=== PATIENT | female | born 1985 | race Caucasian/White ===

== ENCOUNTER 2017-08-09 06:06 | Day surgery (SDC) | payer OTHER ==
[2017-08-09] MEDS ORDERED: SUBLIMAZE 100 MCG/2 ML IV ONE (06:07)
[2017-08-09] MEDS ORDERED: DIPRIVAN 200 MG/20 ML IV ONE ×2 (06:07→07:46)
[2017-08-09] MEDS ORDERED: Versed 2 MG/2 ML Injection IV ONE (06:07)
[2017-08-09] MEDS ORDERED: Lactated Ringers 1,000 ML IV ONE ×3 (06:23→07:10)
[2017-08-09] MEDS ORDERED: Lactated Ringers 1,000 ML IV SCH (06:30)
[2017-08-09 08:42] VITALS: O2SAT 100
[2017-08-09 08:44] VITALS: PULSE 66
--- NOTE | 2017-08-09 08:50 | OP ---
SURGERY DATE/TIME: 08/08/2017 0733 PREOPERATIVE DIAGNOSIS: Rectal bleeding. POSTOPERATIVE DIAGNOSIS: Normal colon. PROCEDURE: Colonoscopy with biopsy. SURGEON: Dr. Randle. ANESTHESIA: MAC. Medications given by anesthesia department. HISTORY: The patient is a 31 year-old white female who presents now with complaints of abdominal pain and rectal bleeding. The patient is felt the need to have endoscopic evaluation. She was appraised of the risks of the procedure including the risk of perforation, phlebitis, untoward reaction to medication, bleeding and missed lesions. The patient verbalized her understanding and desired to have the procedure performed. DESCRIPTION OF PROCEDURE: The patient was given the medications by the anesthesia department. She had continuous pulse oximetry, ECG monitoring, intermittent blood pressure monitoring and tidal CO2 monitoring during the examination. She was placed in the left lateral decubitus position. A digital rectal examination was performed and revealed normal anal sphincter tone and no masses, no hemorrhoids. The flexible Olympus pediatric colonoscope was used to intubate the rectum. A view of the colon was developed sequentially to the cecum including a short distance into the terminal ileum. Upon insertion and withdrawal, including a retroflex view in the rectum, no mucosal lesions were encountered. Biopsies were obtained from segments throughout the colon to rule out microscopic colitis. The scope was removed from the patient who tolerated the procedure well and was sent back to OP recovery in good condition. The prep was noted to be fair to good.
[2017-08-09 09:04] VITALS: BP 97/56
== END 2017-08-09 09:00 | disposition home or self-care (01) ==
LOC: SDC 06:06
PROVIDERS: ATTEND Family Medicine
PROC: 0DBK8ZX Excision of Ascending Colon, Via Natural or Artificial Opening Endoscopic, Diagnostic (ICD-10-PCS; principal; 2017-08-09)
PROC: 0DBL8ZX Excision of Transverse Colon, Via Natural or Artificial Opening Endoscopic, Diagnostic (ICD-10-PCS; 2017-08-09)
PROC: 0DBN8ZX Excision of Sigmoid Colon, Via Natural or Artificial Opening Endoscopic, Diagnostic (ICD-10-PCS; 2017-08-09)
DX: K62.5 Hemorrhage of anus and rectum (principal)
CPT/HCPCS: 84703; 88305; J2250; J2704; J3010

== ENCOUNTER 2019-09-22 18:35 | Observation (INO) | payer BC ==
[2019-09-22] MEDS ORDERED: Phenergan 25 MG INJ IV PRN (19:17)
[2019-09-22 19:39] LABS: Appearance CLEAR (CLEAR); Bilirubin NEGATIVE (NEGATIVE); Blood LARGE Ery/ul (0-5); Epithelial Cells RARE /HPF (FEW); Glucose NEGATIVE (NEGATIVE); Ketones NEGATIVE (NEGATIVE); Leukocyte Esterase TRACE (NEGATIVE); Mucus SLIGHT /HPF (NEGATIVE); Nitrite NEGATIVE (NEGATIVE); Protein,Urine Dip NEGATIVE (Negative); RBC 0-2 /HPF (0-2); Specific Gravity >1.060 (1.005-1.025); Urobilinogen NEGATIVE mg/dL (0-1)
[2019-09-22 19:41] LABS: Oval Fat Body,Urine NO
[2019-09-22 20:06] LABS: Hematocrit 44.1 % (35-47); Hemoglobin 14.3 gm/dl (12.0-16.0); Mean Cell Volume 95.9 fl (78-100); Mean Corpuscular Hemoglobin 31.1 pg (26-32); Mean Corpuscular Hgb Concent. 32.4 g/dl (32-36); Mean Platelet Volume 8.8 fl (7.5-11.0); Platelet Count 270 K/mm3 (150-450); Red Cell Distribution Width 13.1 % (11.5-14.0); White Blood Count 7.6 K/mm3 (4.0-10.5)
[2019-09-22 20:17] LABS: ALBUMIN 4.3 g/dL (3.5-5.0); ALKALINE PHOSPHATASE 70 U/L (38-126); ANION GAP 9.7 MEQ/L (5-15); BLOOD UREA NITROGEN 12 mg/dL (7-17); CHLORIDE 108 mmol/L (98-107); Calcium 8.9 mg/dL (8.4-10.2); Carbon Dioxide 27 mmol/L (22-30); Creatinine 1 0.72 mg/dL (0.52-1.04); Glucose 94 mg/dL (74-106); Potassium 3.7 mmol/L (3.5-5.1); SGOT/AST 23 U/L (14-36); SGPT/ALT 25 U/L (0-35); SODIUM 141 mmol/L (137-145)
[2019-09-22] MEDS: Sodium Chloride 0.9% 1000 ML 1,000 ML IV SCH (20:51)
[2019-09-22] MEDS ORDERED: Wellbutrin SR 150 MG ONE (21:19)
[2019-09-22] MEDS: Reglan 10 MG/2 ML IV SCH (22:11)
[2019-09-22] MEDS: Protonix 40MG Tablet PO SCH (22:11)
[2019-09-22] MEDS: ZOLOFT 50 MG TABLET PO SCH (22:11)
[2019-09-22] MEDS: Wellbutrin XL 150 MG PO SCH (22:12)
[2019-09-23] MEDS: Sodium Chloride 0.9% 1000 ML 1,000 ML IV SCH ×3 (03:17→15:59)
[2019-09-23] MEDS: Reglan 10 MG/2 ML IV SCH ×3 (04:03→16:00)
[2019-09-23] MEDS ORDERED: PATIENT OWN MEDICATION VAG SCH (07:15)
--- NOTE | 2019-09-23 09:05 | PCM.HP.ADD ---
Addendum to History & Physical - History & Physical Addendum Addendum to History & Physical: This certifies that the History & Physical in the electronic chart reflects the current health status of the patient. If there are changes in the H&P these changes/exceptions are listed as follows.
--- NOTE | 2019-09-23 09:11 | PCM.HP ---
History of Present Illness - Chief Complaint Chief Complaint: ileus vs enteritis History of Present Illness: is a 33 year old female pt who was directly admitted by Dr. Monge for ileus vs enteritis. Pt is feeling better this morning, her pain is decreased but still present. No vomiting or diarrhea. Has been tolerating ice chips. - Review of Systems Constitutional: No Fever Abdominal/Gastrointestinal: Abdominal Pain Medications & Allergies Home Medications: Home Medication List Levonorgestrel [Mirena] 1 each IY UD 08/09/17 [History Confirmed 09/22/19] Bupropion HCl Xl 150 mg [Wellbutrin XL 150 MG] 150 mg PO DAILY 09/22/19 [ History Confirmed 09/22/19] Hyoscyamine Sulfate 0.125 mg [Anaspaz 0.125 mg] 0.125 mg PO Q3H PRN [History Confirmed 09/22/19] Methylprednisolone 4 mg [Medrol 4 mg] 4 mg PO DAILY 09/22/19 [History Confirmed 09/22/19] Promethazine HCl 25 mg [Phenergan 25 mg] 25 mg PO Q6HPRN PRN 09/22/19 [ History Confirmed 09/22/19] Sertraline HCl [Zoloft] 100 mg PO DAILY 09/22/19 [History Confirmed 09/22/19] Allergies/Adverse Reactions: Allergies Allergy/AdvReac Type Severity Reaction Status Date / Time prochlorperazine Allergy Verified 08/08/17 16:04 [From Compazine] - Past Medical History Past Medical History: Yes Neurological History: No Pertinent History ENT History: No Pertinent History Cardiac History: No Pertinent History Respiratory History: No Pertinent History, Other Endocrine Medical History: No Pertinent History Musculoskelatal History: No Pertinent History GI Medical History: GERD History: No Pertinent History Pyscho-Social History: Anxiety, Depression Reproductive Disorders: No Pertinent History Comment: Hx of sarcodoisis. Current everyday smoker. - Female History Hx Last Menstrual Period: no period due to mirena Are you now?: No (unknown) - Past Surgical History Past Surgical History: Yes Neuro Surgical History: No Pertinent History Cardiac History: No Pertinent History Respiratory Surgery: No Pertinent History GI Surgical History: Appendectomy, Cholecystectomy, Other Genitourinary Surgical Hx: No Pertinent History Musculskeletal Surgical Hx: No Pertinent History Female Surgical History: No Pertinent History Other Surgical History: hx of colonoscopies 2013 and 2017, lymph nodes removed from groin 2013 - Social History Smoking Status: Current every day smoker How long have you smoked: 20 years Exposure to second hand smoke: Yes Alcohol: Occasionally Drug Use: none - Physical Exam Vital Signs: Vital Signs - 24 hr Temp Pulse Resp BP Pulse Ox 09/23/19 08:00 98.5 F 68 16 92/52 96 09/23/19 03:50 98.1 F 66 16 94/57 98 09/22/19 23:29 97.5 F 81 16 101/55 98 09/22/19 19:55 98.8 F 86 17 115/65 99 General Appearance: mild distress, alert Neurologic Exam: oriented x 3, cooperative Eye Exam: eyes nml inspection Ears, Nose, Throat Exam: moist mucous membranes Neck Exam: normal inspection Respiratory Exam: normal breath sounds, lungs clear, No crackles/rales, No rhonchi, No wheezing Cardiovascular Exam: regular rate/rhythm, normal heart sounds, No murmur Gastrointestinal/Abdomen Exam: soft, normal bowel sounds, tenderness (epigastrum , periumbilical), No distention, No mass, No guarding, No rebound Back Exam: normal inspection, No rash Extremity Exam: normal inspection, No pedal edema, No swelling Skin Exam: normal color, warm, dry, No rash Results - Labs Lab/Micro Results: Lab Results-Last 24 Hours 09/22/19 09/22/19 09/22/19 Range/Units 19:20 19:50 19:50 WBC 7.6 (4.0-10.5) K/mm3 RBC 4.60 (4.1-5.4) M/mm3 Hgb 14.3 (12.0-16.0) gm/dl Hct 44.1 (35-47) % MCV 95.9 (78-100) fl MCH 31.1 (26-32) pg MCHC 32.4 (32-36) g/dl RDW 13.1 (11.5-14.0) % Plt Count 270 (150-450) K/mm3 MPV 8.8 (7.5-11.0) fl Sodium 141 (137-145) mmol/L Potassium 3.7 (3.5-5.1) mmol/L Chloride 108 H (98-107) mmol/L Carbon Dioxide 27 (22-30) mmol/L Anion Gap 9.7 (5-15) MEQ/L BUN 12 (7-17) mg/dL Creatinine 0.72 (0.52-1.04) mg/dL Estimated GFR > 60.0 ML/MIN Glucose 94 (74-106) mg/dL Calcium 8.9 (8.4-10.2) mg/dL Total Bilirubin 0.50 (0.2-1.3) mg/dL AST 23 (14-36) U/L ALT 25 (0-35) U/L Alkaline Phosphatase 70 (38-126) U/L Serum Total Protein 7.0 (6.3-8.2) g/dL Albumin 4.3 (3.5-5.0) g/dL Urine Color YELLOW (YELLOW) Urine Appearance CLEAR (CLEAR) Urine pH 5.0 (5-6) Ur Specific [place] >1.060 (1.005-1.025) Urine Protein NEGATIVE (Negative) Urine Ketones NEGATIVE (NEGATIVE) Urine Blood LARGE (0-5) Vicente/ul Urine Nitrite NEGATIVE (NEGATIVE) Urine Bilirubin NEGATIVE (NEGATIVE) Urine Urobilinogen NEGATIVE (0-1) mg/dL Ur Leukocyte Esterase TRACE (NEGATIVE) Urine WBC (Auto) NONE (0-5) /HPF Urine RBC (Auto) 0-2 (0-2) /HPF U Epithel Cells (Auto) RARE (FEW) /HPF Urine Bacteria (Auto) NONE (NEGATIVE) /HPF Urine Mucus (Auto) SLIGHT (NEGATIVE) /HPF Ur Oval Fat Bodies Auto NO Urine Culture Reflexed NO (NO) Urine Glucose NEGATIVE (NEGATIVE) mg/dL Assessment/Plan (1) Ileus Current Visit: Yes Status: Acute Assessment & Plan: On IV reglan and po pantoprazole; will try CLD Code(s): K56.7 - ILEUS, UNSPECIFIED
[2019-09-23] MEDS: ZOLOFT 50 MG TABLET PO SCH (09:34)
[2019-09-23] MEDS: Protonix 40MG Tablet PO SCH (09:34)
[2019-09-23] MEDS: Wellbutrin XL 150 MG PO SCH (09:35)
[2019-09-23] MEDS ORDERED: MEDROL 4 MG PO SCH (10:00)
[2019-09-23] MEDS ORDERED: Wellbutrin XL 150 MG PO SCH (10:00)
[2019-09-23 17:15] VITALS: BP 107/64; PULSE 61; O2SAT 99
== END 2019-09-23 19:00 | disposition home or self-care (01) ==
LOC: MED SURG 19:03
PROVIDERS: ADMIT Family Medicine; ATTEND Family Medicine
DX: K56.7 Ileus, unspecified (principal); R10.9 Unspecified abdominal pain; R11.2 Nausea with vomiting, unspecified; R15.9 Full incontinence of feces; R19.7 Diarrhea, unspecified; Z79.899 Other long term (current) drug therapy
CPT/HCPCS: 36415; 80053; 81001; 82270; 85027; 87045; 87046; 87335; G0378; A9270-GY

== ENCOUNTER 2019-10-18 16:24 | Observation (INO) | payer BC ==
[2019-10-18] MEDS ORDERED: Sodium Chloride 0.9% 1000 ML 1,000 ML IV STA (16:57)
[2019-10-18] MEDS ORDERED: Zofran 4 MG/2 ML VIAL IV ONE ×2 (16:57→20:04)
[2019-10-18] MEDS ORDERED: PROTONIX 40 MG IV IV ONE ×2 (16:57→17:03)
[2019-10-18] MEDS ORDERED: Pepcid 20 MG VIAL IV ONE ×2 (16:57→17:03)
--- NOTE | 2019-10-18 16:57 | ERPHSYRPT ---
- History of Present Illness Time Seen by Provider: 10/18/19 16:52 Historian: patient Exam Limitations: no limitations Physician History: pt is 33 year old female with hx GB surgery complicated by bile leaks and requiring stents and ERCPs a number of times then developing chronic pancreatitis and GI motility concerns - neg colonoscopy and EGD recently - last CT several months ago and no abd is acutely and diffusly tender to palpation with distension. is on bently hycosamine and reglan which had been working but not this past several days and now not able to eat. Timing/Duration: week(s) Activities at Onset: none Quality: cramping, fullness, pressure, stabbing, throbbing Abdominal Pain Onset Location: generalized abdomen Pain Radiation: no radiation Severity of Pain-Max: moderate Severity of Pain-Current: moderate Modifying Factors: Improves With: vomiting Associated Symptoms: diarrhea, fever/chills, loss of appetite, nausea, vomiting Previous symptoms: same symptoms as today, recently seen, recently treated, other (increasing) Allergies/Adverse Reactions: prochlorperazine [From Compazine] Allergy (Verified 10/18/19 16:58) tramadol Adverse Reaction (Verified 10/18/19 16:59) Swelling of Feet swelling of legs and feet Home Medications: Levonorgestrel [Mirena] 1 each IY UD 08/09/17 [History] Bupropion HCl Xl 150 mg [Wellbutrin XL 150 MG] 150 mg PO DAILY 09/22/19 [ History] Hyoscyamine Sulfate 0.125 mg [Anaspaz 0.125 mg] 0.125 mg PO Q4HPRN PRN [History] Promethazine HCl 25 mg [Phenergan 25 mg] 25 mg PO Q4HPRN PRN 09/22/19 [ History] Sertraline HCl [Zoloft] 100 mg PO DAILY 09/22/19 [History] Dicyclomine HCl 20 mg [Bentyl 20 mg] 20 mg PO QID 10/18/19 [History] Metoclopramide HCl 10 mg PO QID 10/18/19 [History] Omeprazole 40 mg PO DAILY 10/18/19 [History] - Review of Systems Constitutional: No Fever, No Chills Eyes: No Symptoms Ears, Nose, & Throat: No Symptoms Respiratory: No Cough, No Dyspnea Cardiac: No Chest Pain, No Edema, No Syncope Abdominal/Gastrointestinal: Abdominal Pain, Nausea, Vomiting, Diarrhea, Appetite Changes Genitourinary Symptoms: No Dysuria Musculoskeletal: No Back Pain, No Neck Pain Skin: No Rash Neurological: No Dizziness, No Focal Weakness, No Sensory Changes Psychological: No Symptoms Endocrine: No Symptoms All Other Systems: Reviewed and Negative - Past Medical History Pertinent Past Medical History: Yes Neurological History: No Pertinent History ENT History: No Pertinent History Cardiac History: No Pertinent History Respiratory History: No Pertinent History, Other Endocrine Medical History: No Pertinent History Musculoskeletal History: No Pertinent History GI Medical History: GERD History: No Pertinent History Psycho-Social History: Anxiety, Depression Female Reproductive Disorders: No Pertinent History Other Medical History: Hx of sarcodoisis. Current everyday smoker. - Past Surgical History Past Surgical History: Yes Neuro Surgical History: No Pertinent History Cardiac: No Pertinent History Respiratory: No Pertinent History Gastrointestinal: Appendectomy, Cholecystectomy, Other Genitourinary: No Pertinent History Musculoskeletal: No Pertinent History Female Surgical History: No Pertinent History Other Surgical History: hx of colonoscopies 2013 and 2016, lymph nodes removed from groin 2013 - Social History Smoking Status: Current every day smoker How long have you smoked: 20 years Exposure to second hand smoke: Yes Drug Use: none - Nursing Vital Signs Nursing Vital Signs: Initial Vital Signs Temperature 98.4 F 10/18/19 16:31 Pulse Rate 74 10/18/19 16:31 Respiratory Rate 20 10/18/19 16:31 Blood Pressure 119/78 10/18/19 16:31 O2 Sat by Pulse Oximetry 98 10/18/19 16:31 Pain Scale Pain Intensity 5 - Physical Exam General Appearance: no apparent distress, alert Eye Exam: PERRL/EOMI, eyes nml inspection Ears, Nose, Throat Exam: normal ENT inspection, pharynx normal, moist mucous membranes Neck Exam: normal inspection, non-tender, supple, full range of motion Respiratory Exam: normal breath sounds, lungs clear, No respiratory distress Cardiovascular Exam: regular rate/rhythm, normal heart sounds Gastrointestinal/Abdomen Exam: soft, tenderness, guarding, No mass Pelvic Exam: deferred Rectal Exam: deferred Back Exam: normal inspection, normal range of motion, No CVA tenderness, No vertebral tenderness Extremity Exam: normal inspection, normal range of motion, pelvis stable Neurologic Exam: alert, oriented x 3, cooperative, normal mood/affect, nml cerebellar function, sensation nml, No motor deficits Skin Exam: normal color, warm, dry - Course Nursing assessment & vital signs reviewed: Yes - CT Exams Abdomen/Pelvis CT Interpretation: Tele-radiologist Report, No appendicitis, Other (small fluid in pelvis prob physiologic) Ordered Tests: Active Orders 24 hr Category Date Time Status IV Insertion STAT Care 10/18/19 16:57 Active NPO (ED) STAT Care 10/18/19 16:57 Active ABDOMEN AND PELVIS W/0 CONTRAS [CT] Stat Exams 10/18/19 16:59 Completed AMYLASE Stat Lab 10/18/19 17:45 Completed CBC W DIFF Stat Lab 10/18/19 17:45 Completed CMP Stat Lab 10/18/19 17:45 Completed HCG QUALITATIVE,SERUM Stat Lab 10/18/19 17:45 Completed LIPASE Stat Lab 10/18/19 17:45 Completed Lactic Acid Stat Lab 10/18/19 17:00 Completed UA W/RFX UR CULTURE Stat Lab 10/18/19 17:45 Completed Medication Summary Discontinued Medications Generic Name Dose Route Start Last Admin Trade Name Freq PRN Reason Stop Dose Admin Famotidine 20 mg 10/18/19 16:57 10/18/19 17:07 Pepcid 20 Mg Vial IV 10/18/19 16:58 20 mg STAT ONE Administration Famotidine Confirm 10/18/19 17:03 Pepcid 20 Mg Vial Administered 10/18/19 17:04 Dose 20 mg IV .STK-MED ONE Hydromorphone HCl 0.5 mg 10/18/19 18:00 10/18/19 18:24 Hydromorphone 1 Mg/Ml Ampule IV 10/18/19 18:01 0.5 mg STAT ONE Administration Hydromorphone HCl Confirm 10/18/19 18:19 Hydromorphone 1 Mg/Ml Ampule Administered 10/18/19 18:20 Dose 1 mg .ROUTE .STK-MED ONE Hydromorphone HCl 0.5 mg 10/18/19 20:04 10/18/19 20:14 Hydromorphone 1 Mg/Ml Ampule IV 10/18/19 20:05 0.5 mg STAT ONE Administration Hydromorphone HCl Confirm 10/18/19 20:12 Hydromorphone 1 Mg/Ml Ampule Administered 10/18/19 20:13 Dose 1 mg .ROUTE .STK-MED ONE Sodium Chloride 1,000 mls @ 999 mls/hr 10/18/19 16:57 10/18/19 18:24 Sodium Chloride 0.9% 1000 Ml IV 10/18/19 17:57 Infused .Q1H1M STA Infusion Sodium Chloride Confirm 10/18/19 17:03 Sodium Chloride 0.9% 1000 Ml Administered 10/18/19 17:04 Dose 1,000 mls @ ud .ROUTE .STK-MED ONE Ondansetron HCl 4 mg 10/18/19 16:57 10/18/19 17:07 Zofran 4 Mg/2 Ml Vial IV 10/18/19 16:58 4 mg STAT ONE Administration Ondansetron HCl Confirm 10/18/19 17:03 Zofran 4 Mg/2 Ml Vial Administered 10/18/19 17:04 Dose 4 mg .ROUTE .STK-MED ONE Ondansetron HCl 4 mg 10/18/19 20:04 10/18/19 20:14 Zofran 4 Mg/2 Ml Vial IV 10/18/19 20:05 4 mg STAT ONE Administration Ondansetron HCl Confirm 10/18/19 20:12 Zofran 4 Mg/2 Ml Vial Administered 10/18/19 20:13 Dose 4 mg .ROUTE .STK-MED ONE Pantoprazole Sodium 40 mg 10/18/19 16:57 10/18/19 17:07 Protonix 40 Mg Iv IV 10/18/19 16:58 40 mg STAT ONE Administration Pantoprazole Sodium Confirm 10/18/19 17:03 Protonix 40 Mg Iv Administered 10/18/19 17:04 Dose 40 mg IV .STK-MED ONE Lab/Rad Data: Laboratory Result Diagrams 10/18/19 17:45 10/18/19 17:45 Laboratory Results 10/18/19 10/18/19 10/18/19 Range/Units 17:45 17:45 17:45 WBC (4.0-10.5) K/mm3 RBC (4.1-5.4) M/mm3 Hgb (12.0-16.0) gm/dl Hct (35-47) % MCV (78-100) fl MCH (26-32) pg MCHC (32-36) g/dl RDW (11.5-14.0) % Plt Count (150-450) K/mm3 MPV (7.5-11.0) fl Gran % (36.0-66.0) % Eos # (Auto) (0-0.5) Absolute Lymphs (auto) (1.0-4.6) Absolute Monos (auto) (0.0-1.3) Lymphocytes % (24.0-44.0) % Monocytes % (0.0-12.0) % Eosinophils % (0.00-5.0) % Basophils % (0.0-0.4) % Absolute Granulocytes (1.4-6.9) Basophils # (0-0.4) Sodium 140 (137-145) mmol/L Potassium 3.9 (3.5-5.1) mmol/L Chloride 105 (98-107) mmol/L Carbon Dioxide 24 (22-30) mmol/L Anion Gap 15.3 H (5-15) MEQ/L BUN 11 (7-17) mg/dL Creatinine 0.74 (0.52-1.04) mg/dL Estimated GFR > 60.0 ML/MIN Glucose 88 (74-106) mg/dL Lactic Acid (0.4-2.0) Calcium 9.4 (8.4-10.2) mg/dL Total Bilirubin 0.50 (0.2-1.3) mg/dL AST 42 H (14-36) U/L ALT 73 H (0-35) U/L Alkaline Phosphatase 117 (38-126) U/L Serum Total Protein 7.9 (6.3-8.2) g/dL Albumin 4.8 (3.5-5.0) g/dL Amylase 72 (30-110) U/L Lipase 112 (23-300) U/L Serum , Qual NEGATIVE (Negative) Urine Color YELLOW (YELLOW) Urine Appearance SLIGHTLY CLOUDY (CLEAR) Urine pH 6.0 (5-6) Ur Specific [place] 1.014 (1.005-1.025) Urine Protein NEGATIVE (Negative) Urine Ketones NEGATIVE (NEGATIVE) Urine Blood SMALL (0-5) Vicente/ul Urine Nitrite NEGATIVE (NEGATIVE) Urine Bilirubin NEGATIVE (NEGATIVE) Urine Urobilinogen NEGATIVE (0-1) mg/dL Ur Leukocyte Esterase NEGATIVE (NEGATIVE) Urine WBC (Auto) NONE (0-5) /HPF Urine RBC (Auto) 0-2 (0-2) /HPF U Epithel Cells (Auto) RARE (FEW) /HPF Urine Bacteria (Auto) NONE (NEGATIVE) /HPF Urine Mucus (Auto) SLIGHT (NEGATIVE) /HPF Urine Culture Reflexed NO (NO) Urine Glucose NEGATIVE (NEGATIVE) mg/dL 10/18/19 10/18/19 Range/Units 17:45 17:00 WBC 8.0 (4.0-10.5) K/mm3 RBC 4.63 (4.1-5.4) M/mm3 Hgb 14.7 (12.0-16.0) gm/dl Hct 44.0 (35-47) % MCV 95.0 (78-100) fl MCH 31.7 (26-32) pg MCHC 33.4 (32-36) g/dl RDW 13.3 (11.5-14.0) % Plt Count 353 (150-450) K/mm3 MPV 9.3 (7.5-11.0) fl Gran % 63.7 (36.0-66.0) % Eos # (Auto) 0.16 (0-0.5) Absolute Lymphs (auto) 2.26 (1.0-4.6) Absolute Monos (auto) 0.48 (0.0-1.3) Lymphocytes % 28.1 (24.0-44.0) % Monocytes % 6.0 (0.0-12.0) % Eosinophils % 2.0 (0.00-5.0) % Basophils % 0.2 (0.0-0.4) % Absolute Granulocytes 5.12 (1.4-6.9) Basophils # 0.02 (0-0.4) Sodium (137-145) mmol/L Potassium (3.5-5.1) mmol/L Chloride (98-107) mmol/L Carbon Dioxide (22-30) mmol/L Anion Gap (5-15) MEQ/L BUN (7-17) mg/dL Creatinine (0.52-1.04) mg/dL Estimated GFR ML/MIN Glucose (74-106) mg/dL Lactic Acid 0.7 (0.4-2.0) Calcium (8.4-10.2) mg/dL Total Bilirubin (0.2-1.3) mg/dL AST (14-36) U/L ALT (0-35) U/L Alkaline Phosphatase (38-126) U/L Serum Total Protein (6.3-8.2) g/dL Albumin (3.5-5.0) g/dL Amylase (30-110) U/L Lipase (23-300) U/L Serum , Qual (Negative) Urine Color (YELLOW) Urine Appearance (CLEAR) Urine pH (5-6) Ur Specific [place] (1.005-1.025) Urine Protein (Negative) Urine Ketones (NEGATIVE) Urine Blood (0-5) Vicente/ul Urine Nitrite (NEGATIVE) Urine Bilirubin (NEGATIVE) Urine Urobilinogen (0-1) mg/dL Ur Leukocyte Esterase (NEGATIVE) Urine WBC (Auto) (0-5) /HPF Urine RBC (Auto) (0-2) /HPF U Epithel Cells (Auto) (FEW) /HPF Urine Bacteria (Auto) (NEGATIVE) /HPF Urine Mucus (Auto) (NEGATIVE) /HPF Urine Culture Reflexed (NO) Urine Glucose (NEGATIVE) mg/dL - Progress Progress: improved, re-examined Progress Note: 10/18/19 21:13 discussed with pt and Dr. Marquez adn will place in on obs for intractable pain /vomiting Discussed with : Winston Will see patient in: hospital (observation) Counseled pt/family regarding: lab results, diagnosis, need for follow-up, rad results - Departure Departure Disposition: Observation Clinical Impression: intracatable abdominal pain unknown etil, Intractable abdominal pain Condition: Good Critical Care Time: No Referrals: MELISA CHI MD [Primary Care Provider] -
[2019-10-18] MEDS ORDERED: Sodium Chloride 0.9% 1000 ML 1,000 ML ONE (17:03)
[2019-10-18] MEDS ORDERED: Zofran 4 MG/2 ML VIAL ONE ×2 (17:03→20:12)
[2019-10-18 17:47] LABS: Absolute Neutrophil Ct (ANC) 5.12 (1.4-6.9); BASOPHIL % 0.2 % (0.0-0.4); Basophil (Absolute #) 0.02 (0-0.4); Eosinophil (Absolute #) 0.16 (0-0.5); Hemoglobin 14.7 gm/dl (12.0-16.0); Lymphocyte (Absolute #) 2.26 (1.0-4.6); Lymphocytes % 28.1 % (24.0-44.0); Mean Corpuscular Hemoglobin 31.7 pg (26-32); Mean Corpuscular Hgb Concent. 33.4 g/dl (32-36); Mean Platelet Volume 9.3 fl (7.5-11.0); Monocyte (Absolute #) 0.48 (0.0-1.3); Neutrophil % 63.7 % (36.0-66.0); Platelet Count 353 K/mm3 (150-450); Red Blood Count 4.63 M/mm3 (4.1-5.4); Red Cell Distribution Width 13.3 % (11.5-14.0)
[2019-10-18 17:54] LABS: Appearance SLIGHTLY CLOUDY (CLEAR); Bilirubin NEGATIVE (NEGATIVE); Blood SMALL Ery/ul (0-5); Epithelial Cells RARE /HPF (FEW); Glucose NEGATIVE (NEGATIVE); Ketones NEGATIVE (NEGATIVE); Leukocyte Esterase NEGATIVE (NEGATIVE); Mucus SLIGHT /HPF (NEGATIVE); Nitrite NEGATIVE (NEGATIVE); Protein,Urine Dip NEGATIVE (Negative); RBC 0-2 /HPF (0-2); Specific Gravity 1.014 (1.005-1.025); Urobilinogen NEGATIVE mg/dL (0-1)
[2019-10-18 17:58] LABS: ALBUMIN 4.8 g/dL (3.5-5.0); ALKALINE PHOSPHATASE 117 U/L (38-126); AMYLASE 72 U/L (30-110); ANION GAP 15.3 MEQ/L (5-15); BLOOD UREA NITROGEN 11 mg/dL (7-17); CHLORIDE 105 mmol/L (98-107); Calcium 9.4 mg/dL (8.4-10.2); Carbon Dioxide 24 mmol/L (22-30); Creatinine 1 0.74 mg/dL (0.52-1.04); Glucose 88 mg/dL (74-106); LIPASE 112 U/L (23-300); Potassium 3.9 mmol/L (3.5-5.1); SGOT/AST 42 U/L (14-36); SGPT/ALT 73 U/L (0-35); SODIUM 140 mmol/L (137-145); Total Protein 7.9 g/dL (6.3-8.2)
[2019-10-18] MEDS ORDERED: Hydromorphone 1 mg/ml Ampule IV ONE ×2 (18:00→20:04)
[2019-10-18] MEDS ORDERED: Hydromorphone 1 mg/ml Ampule ONE ×2 (18:19→20:12)
--- NOTE | 2019-10-18 19:51 | XRAY ---
Indication: Abdomen pain, nausea, vomiting, diarrhea. Multiple contiguous axial images obtained through the abdomen and pelvis without contrast as ordered. Comparison: September 22, 2019. Lung bases again demonstrates minimal bibasilar atelectasis/scarring without infiltrate or effusion. Heart is not enlarged. Noncontrasted stomach and bowel loops remain nonobstructed. Again previous appendectomy and cholecystectomy. Stable IUD. New tiny cul-de-sac free fluid presumed physiologic from rupture/leaking cyst. No free air. Remaining liver, pancreas, spleen, adrenal glands, kidneys, ureters, bladder, uterus, and aorta appear unremarkable for noncontrast exam. Osseous structures intact. Impression: 1. New tiny cul-de-sac fluid presumed physiologic. Stable IUD in situ. 2. Remaining CT abdomen/pelvis without contrast exam is negative. Comment: Preliminary interpretation was made by [facility]. No critical discrepancy.
[2019-10-18] MEDS ORDERED: Phenergan 25 MG INJ IM PRN (21:55)
[2019-10-18] MEDS ORDERED: HUMULIN R SQ PRN (21:55)
[2019-10-18] MEDS: Pepcid 20 MG VIAL IV SCH (22:15)
[2019-10-18] MEDS: Sodium Chloride 0.9% 1000 ML 1,000 ML IV SCH (22:16)
[2019-10-19] MEDS: DILAUDID 2 MG INJECTION IV PRN ×4 (00:21→20:13)
[2019-10-19] MEDS ORDERED: ANASPAZ 0.125 MG PO PRN (01:00)
[2019-10-19] MEDS ORDERED: Reglan 10 MG PO SCH (01:02)
[2019-10-19] MEDS ORDERED: Wellbutrin SR 150 MG ONE (01:10)
[2019-10-19] MEDS: BENTYL 20 MG PO SCH ×5 (01:31→21:46)
[2019-10-19] MEDS: ZOLOFT 50 MG TABLET PO SCH ×2 (01:31→21:46)
[2019-10-19] MEDS: Wellbutrin XL 150 MG PO SCH ×2 (01:55→21:46)
[2019-10-19 05:00] LABS: Absolute Neutrophil Ct (ANC) 3.35 (1.4-6.9); BASOPHIL % 0.3 % (0.0-0.4); Basophil (Absolute #) 0.02 (0-0.4); Eosinophil % 2.9 % (0.00-5.0); Eosinophil (Absolute #) 0.19 (0-0.5); Hematocrit 37.9 % (35-47); Hemoglobin 12.2 gm/dl (12.0-16.0); Lymphocyte (Absolute #) 2.39 (1.0-4.6); Lymphocytes % 37.1 % (24.0-44.0); Mean Cell Volume 96.9 fl (78-100); Mean Corpuscular Hemoglobin 31.2 pg (26-32); Mean Corpuscular Hgb Concent. 32.2 g/dl (32-36); Mean Platelet Volume 8.8 fl (7.5-11.0); Monocytes % 7.8 % (0.0-12.0); Neutrophil % 51.9 % (36.0-66.0); Platelet Count 263 K/mm3 (150-450); Red Blood Count 3.91 M/mm3 (4.1-5.4); Red Cell Distribution Width 13.3 % (11.5-14.0); White Blood Count 6.5 K/mm3 (4.0-10.5)
[2019-10-19 05:17] LABS: ALBUMIN 3.4 g/dL (3.5-5.0); ALKALINE PHOSPHATASE 75 U/L (38-126); ANION GAP 9.7 MEQ/L (5-15); BLOOD UREA NITROGEN 8 mg/dL (7-17); CHLORIDE 108 mmol/L (98-107); Calcium 8.1 mg/dL (8.4-10.2); Carbon Dioxide 22 mmol/L (22-30); Creatinine 1 0.62 mg/dL (0.52-1.04); Glucose 100 mg/dL (74-106); Potassium 3.6 mmol/L (3.5-5.1); SGOT/AST 34 U/L (14-36); SGPT/ALT 53 U/L (0-35); SODIUM 137 mmol/L (137-145); Total Protein 5.9 g/dL (6.3-8.2)
[2019-10-19] MEDS: Zofran 4 MG/2 ML VIAL IV PRN ×3 (07:39→22:15)
[2019-10-19] MEDS: Reglan 10 MG PO SCH ×4 (07:40→21:46)
[2019-10-19] MEDS: Sodium Chloride 0.9% 1000 ML 1,000 ML IV SCH ×2 (08:10→17:18)
[2019-10-19] MEDS: Pepcid 20 MG VIAL IV SCH ×2 (10:40→21:03)
[2019-10-19] MEDS: PROTONIX 40 MG IV IV SCH (10:40)
[2019-10-19] MEDS: PHENERGAN 25 MG PO PRN ×2 (12:25→20:12)
[2019-10-19] MEDS: TYLENOL 325 MG PO PRN (14:03)
[2019-10-19 19:40] LABS: Amphetamine,Urine NEGATIVE (NEGATIVE); Barbiturate,Urine NEGATIVE (NEGATIVE); Benzodiazepine,Urine NEGATIVE (NEGATIVE); Cocaine,Urine NEGATIVE (NEGATIVE); Methadone,Urine NEGATIVE (NEGATIVE); Opiate,Urine POSITIVE (NEGATIVE); PCP,Urine NEGATIVE (NEGATIVE); THC,Urine NEGATIVE (NEGATIVE)
[2019-10-19] MEDS ORDERED: ZOLOFT 50 MG TABLET PO SCH (22:00)
--- NOTE | 2019-10-19 22:23 | PCM.NOTE ---
Date and Time: 10/19/192221 Subjective Assessment: Patient was admitted through ER with N/V and epigastic/left sided abdominal pain that has been going on for about [address] Abd Pelvis without contrast was negative for acute findings.She was admitted for IV hydration and pain control. Patient had complications after Cholecystectomy 2010 requiring an ERCP and other measures. She is currently followed by GI,Dr Fournier. Hx precancerous polyps 2013,2016 EGD and Colonoscopy earlier this month, with negative findings. Her liver enz are mildly elevated but pancreatic enz are wnl.GI panel not yet collected . Patient states she has alpha I antitrypsin deficiency. I spoke to Dr Fournier and he advised a CT abd/pelvis with oral and IV contrast. Objective Exam General Appearance: mild distress (abdominal discomfort ,releived after pain med ) Neurologic Exam: alert, oriented x 3, cooperative, normal mood/affect Skin Exam: warm, dry, pale Eye Exam: PERRL, EOMI, eyes nml inspection, other (nonicteric) Ears, Nose, Throat Exam: normal ENT inspection, moist mucous membranes Neck Exam: normal inspection Respiratory Exam: normal breath sounds, lungs clear Cardiovascular Exam: regular rate/rhythm, normal heart sounds Gastrointestinal/Abdomen Exam: tenderness (epigatric and left mid abd,no guarding or rebound), distention (diminished BS) Extremity Exam: normal inspection Back Exam: normal inspection Pelvic Exam: deferred Rectal Exam: deferred OBJECTIVE DATA Vital Signs: Vital Signs - 24 hr Temp Pulse Resp BP Pulse Ox 10/19/19 21:09 92 L 10/19/19 20:00 99.0 F 68 16 110/59 96 10/19/19 16:00 98.5 F 63 15 97/64 97 10/19/19 12:00 98.5 F 63 15 97/64 97 10/19/19 10:24 97 10/19/19 07:36 98.7 F 70 16 96/60 97 10/19/19 04:00 98.1 F 72 16 100/61 96 Pain Assessment - Last Documented Pain Intensity 5 Pain Scale Used 0-10 Pain Scale Intake and Output: Intake & Output 10/17/19 10/18/19 10/19/19 10/20/19 11:59 11:59 11:59 11:59 Intake Total 1374 300 Output Total 1650 800 Balance -276 -500 Weight 65.9 kg Lab Results: Accuchecks Date 10/19/19 Time 17:48 Accucheck Value: 76 Lab Results-Last 24 Hours 10/19/19 10/19/19 10/19/19 Range/Units 04:45 04:45 04:53 WBC 6.5 (4.0-10.5) K/mm3 RBC 3.91 L (4.1-5.4) M/mm3 Hgb 12.2 (12.0-16.0) gm/dl Hct 37.9 (35-47) % MCV 96.9 (78-100) fl MCH 31.2 (26-32) pg MCHC 32.2 (32-36) g/dl RDW 13.3 (11.5-14.0) % Plt Count 263 (150-450) K/mm3 MPV 8.8 (7.5-11.0) fl Gran % 51.9 (36.0-66.0) % Eos # (Auto) 0.19 (0-0.5) Absolute Lymphs (auto) 2.39 (1.0-4.6) Absolute Monos (auto) 0.50 (0.0-1.3) Lymphocytes % 37.1 (24.0-44.0) % Monocytes % 7.8 (0.0-12.0) % Eosinophils % 2.9 (0.00-5.0) % Basophils % 0.3 (0.0-0.4) % Absolute Granulocytes 3.35 (1.4-6.9) Basophils # 0.02 (0-0.4) Sodium 137 (137-145) mmol/L Potassium 3.6 (3.5-5.1) mmol/L Chloride 108 H (98-107) mmol/L Carbon Dioxide 22 (22-30) mmol/L Anion Gap 9.7 (5-15) MEQ/L BUN 8 (7-17) mg/dL Creatinine 0.62 (0.52-1.04) mg/dL Estimated GFR > 60.0 ML/MIN Glucose 100 (74-106) mg/dL Hemoglobin A1c (4.5-6.0) % Lactic Acid 0.6 (0.4-2.0) Calcium 8.1 L (8.4-10.2) mg/dL Total Bilirubin 0.40 (0.2-1.3) mg/dL AST 34 (14-36) U/L ALT 53 H (0-35) U/L Alkaline Phosphatase 75 (38-126) U/L Serum Total Protein 5.9 L (6.3-8.2) g/dL Albumin 3.4 L (3.5-5.0) g/dL Urine Opiates Level (NEGATIVE) Ur Methadone (NEGATIVE) Urine Barbiturates (NEGATIVE) Ur Phencyclidine (PCP) (NEGATIVE) Urine Amphetamine (NEGATIVE) U Benzodiazepine Level (NEGATIVE) Urine Cocaine (NEGATIVE) Urine Marijuana (THC) (NEGATIVE) 10/19/19 10/19/19 Range/Units 05:00 19:20 WBC (4.0-10.5) K/mm3 RBC (4.1-5.4) M/mm3 Hgb (12.0-16.0) gm/dl Hct (35-47) % MCV (78-100) fl MCH (26-32) pg MCHC (32-36) g/dl RDW (11.5-14.0) % Plt Count (150-450) K/mm3 MPV (7.5-11.0) fl Gran % (36.0-66.0) % Eos # (Auto) (0-0.5) Absolute Lymphs (auto) (1.0-4.6) Absolute Monos (auto) (0.0-1.3) Lymphocytes % (24.0-44.0) % Monocytes % (0.0-12.0) % Eosinophils % (0.00-5.0) % Basophils % (0.0-0.4) % Absolute Granulocytes (1.4-6.9) Basophils # (0-0.4) Sodium (137-145) mmol/L Potassium (3.5-5.1) mmol/L Chloride (98-107) mmol/L Carbon Dioxide (22-30) mmol/L Anion Gap (5-15) MEQ/L BUN (7-17) mg/dL Creatinine (0.52-1.04) mg/dL Estimated GFR ML/MIN Glucose (74-106) mg/dL Hemoglobin A1c 4.86 (4.5-6.0) % Lactic Acid (0.4-2.0) Calcium (8.4-10.2) mg/dL Total Bilirubin (0.2-1.3) mg/dL AST (14-36) U/L ALT (0-35) U/L Alkaline Phosphatase (38-126) U/L Serum Total Protein (6.3-8.2) g/dL Albumin (3.5-5.0) g/dL Urine Opiates Level POSITIVE (NEGATIVE) Ur Methadone NEGATIVE (NEGATIVE) Urine Barbiturates NEGATIVE (NEGATIVE) Ur Phencyclidine (PCP) NEGATIVE (NEGATIVE) Urine Amphetamine NEGATIVE (NEGATIVE) U Benzodiazepine Level NEGATIVE (NEGATIVE) Urine Cocaine NEGATIVE (NEGATIVE) Urine Marijuana (THC) NEGATIVE (NEGATIVE) Radiology Exams: Radiology Procedures Category Date Time Status ABDOMEN AND PELVIS W CONTRAST [CT] Urgent Exams 10/19/19 19:25 Ordered ABDOMEN AND PELVIS W/0 CONTRAS [CT] Stat Exams 10/18/19 16:59 Completed Assessment/Plan (1) Loss of appetite for more than 2 weeks Current Visit: Yes Status: Acute Assessment & Plan: ileus,enteritis,on IV D5NS with 20potassium,karlie yoon- Dr Fournier GI will take patient as transfer if needed per phone conversation 10/19/2019 .spoke to him prior to results of CT abd/pelvis with contrast. Code(s): R63.0 - ANOREXIA (2) Intractable abdominal pain Current Visit: Yes Status: Acute Assessment & Plan: releived with IV pain med 2-3 hour Code(s): R10.9 - UNSPECIFIED ABDOMINAL PAIN (3) Enteritis Current Visit: Yes Assessment & Plan: GI panel still to be collected Code(s): K52.9 - NONINFECTIVE GASTROENTERITIS AND COLITIS, UNSPECIFIED (4) Ileus Current Visit: Yes Status: Acute Code(s): K56.7 - ILEUS, UNSPECIFIED
[2019-10-20] MEDS: DEXTROSE 5% -NACL 0.9% 1000 ML + KCl 20 MEQ 1,000 ML IV SCH ×2 (00:15→10:16)
[2019-10-20] MEDS: DILAUDID 2 MG INJECTION IV PRN ×5 (00:26→18:38)
[2019-10-20] MEDS: PHENERGAN 25 MG PO PRN ×4 (00:27→18:38)
[2019-10-20 05:20] LABS: Absolute Neutrophil Ct (ANC) 4.01 (1.4-6.9); BASOPHIL % 0.2 % (0.0-0.4); Basophil (Absolute #) 0.01 (0-0.4); Eosinophil % 1.3 % (0.00-5.0); Eosinophil (Absolute #) 0.08 (0-0.5); Lymphocyte (Absolute #) 1.76 (1.0-4.6); Lymphocytes % 28.1 % (24.0-44.0); Mean Cell Volume 97.9 fl (78-100); Mean Corpuscular Hemoglobin 30.9 pg (26-32); Mean Corpuscular Hgb Concent. 31.6 g/dl (32-36); Mean Platelet Volume 8.8 fl (7.5-11.0); Monocyte (Absolute #) 0.41 (0.0-1.3); Monocytes % 6.5 % (0.0-12.0); Neutrophil % 63.9 % (36.0-66.0); Platelet Count 255 K/mm3 (150-450); Red Blood Count 3.88 M/mm3 (4.1-5.4); Red Cell Distribution Width 13.2 % (11.5-14.0); White Blood Count 6.3 K/mm3 (4.0-10.5)
[2019-10-20 05:36] LABS: ALBUMIN 3.4 g/dL (3.5-5.0); ALKALINE PHOSPHATASE 89 U/L (38-126); AMYLASE 59 U/L (30-110); ANION GAP 8.1 MEQ/L (5-15); BLOOD UREA NITROGEN 3 mg/dL (7-17); CHLORIDE 108 mmol/L (98-107); Carbon Dioxide 26 mmol/L (22-30); Creatinine 1 0.58 mg/dL (0.52-1.04); Glucose 98 mg/dL (74-106); LIPASE 65 U/L (23-300); SGOT/AST 35 U/L (14-36); SGPT/ALT 50 U/L (0-35); SODIUM 138 mmol/L (137-145); Total Protein 5.8 g/dL (6.3-8.2)
[2019-10-20] MEDS ORDERED: VENTOLIN COMMON CANISTER IH PRN (07:30)
[2019-10-20] MEDS: TYLENOL 325 MG PO PRN (07:45)
[2019-10-20] MEDS: Reglan 10 MG PO SCH ×3 (07:45→16:30)
--- NOTE | 2019-10-20 08:35 | PCM.NOTE ---
Date and Time: 10/20/19 08 Subjective Assessment: Pt is c/o WILLIAMSON, 9/10, frontal this morning. Having 5/10 LUQ [address] this morning[address] Dr. Marquez talked to Dr. Fournier last night about pt's CT with po and IV contrast, awaiting final report, he may be interested in transferring the patient. - Review of Systems Constitutional: No Fever Abdominal/Gastrointestinal: Abdominal Pain Neurological: Headache Objective Exam General Appearance: mild distress, alert Neurologic Exam: oriented x 3, cooperative Skin Exam: normal color, warm, dry, No rash Eye Exam: eyes nml inspection Ears, Nose, Throat Exam: moist mucous membranes Neck Exam: normal inspection Respiratory Exam: normal breath sounds, lungs clear, No crackles/rales, No rhonchi Cardiovascular Exam: regular rate/rhythm, normal heart sounds, No murmur Gastrointestinal/Abdomen Exam: soft, tenderness (generalized, worse in LUQ), No normal bowel sounds (hypoactive, somewhat high pitched), No distention, No mass , No guarding, No rebound Extremity Exam: No pedal edema, No swelling OBJECTIVE DATA Vital Signs: Vital Signs - 24 hr Temp Pulse Resp BP Pulse Ox 10/20/19 07:28 98.1 F 74 16 120/59 95 10/20/19 04:00 99.0 F 75 16 101/63 95 10/19/19 23:58 98.0 F 70 20 113/62 95 10/19/19 21:09 92 L 10/19/19 20:00 99.0 F 68 16 110/59 96 10/19/19 16:00 98.5 F 63 15 97/64 97 10/19/19 12:00 98.5 F 63 15 97/64 97 10/19/19 10:24 97 Pain Assessment - Last Documented Pain Intensity 9 Pain Scale Used 0-10 Pain Scale Intake and Output: Intake & Output 10/17/19 10/18/19 10/19/19 10/20/19 11:59 11:59 11:59 11:59 Intake Total 1374 1915 Output Total 1650 1250 Balance -276 665 Weight 65.9 kg 68.5 kg Lab Results: Accuchecks Date 10/19/19 Time 17:48 Accucheck Value: 96 Accucheck Value: 76 Lab Results-Last 24 Hours 10/19/19 10/19/1910/19/20 Range/Units 05:00 19:20 04:45 WBC 6.3 (4.0-10.5) K/mm3 RBC 3.88 L (4.1-5.4) M/mm3 Hgb 12.0 (12.0-16.0) gm/dl Hct 38.0 (35-47) % MCV 97.9 (78-100) fl MCH 30.9 (26-32) pg MCHC 31.6 L (32-36) g/dl RDW 13.2 (11.5-14.0) % Plt Count 255 (150-450) K/mm3 MPV 8.8 (7.5-11.0) fl Gran % 63.9 (36.0-66.0) % Eos # (Auto) 0.08 (0-0.5) Absolute Lymphs (auto) 1.76 (1.0-4.6) Absolute Monos (auto) 0.41 (0.0-1.3) Lymphocytes % 28.1 (24.0-44.0) % Monocytes % 6.5 (0.0-12.0) % Eosinophils % 1.3 (0.00-5.0) % Basophils % 0.2 (0.0-0.4) % Absolute Granulocytes 4.01 (1.4-6.9) Basophils # 0.01 (0-0.4) Sodium (137-145) mmol/L Potassium (3.5-5.1) mmol/L Chloride (98-107) mmol/L Carbon Dioxide (22-30) mmol/L Anion Gap (5-15) MEQ/L BUN (7-17) mg/dL Creatinine (0.52-1.04) mg/dL Estimated GFR ML/MIN Glucose (74-106) mg/dL Hemoglobin A1c 4.86 (4.5-6.0) % Calcium (8.4-10.2) mg/dL Total Bilirubin (0.2-1.3) mg/dL AST (14-36) U/L ALT (0-35) U/L Alkaline Phosphatase (38-126) U/L Serum Total Protein (6.3-8.2) g/dL Albumin (3.5-5.0) g/dL Amylase (30-110) U/L Lipase (23-300) U/L Urine Opiates Level POSITIVE (NEGATIVE) Ur Methadone NEGATIVE (NEGATIVE) Urine Barbiturates NEGATIVE (NEGATIVE) Ur Phencyclidine (PCP) NEGATIVE (NEGATIVE) Urine Amphetamine NEGATIVE (NEGATIVE) U Benzodiazepine Level NEGATIVE (NEGATIVE) Urine Cocaine NEGATIVE (NEGATIVE) Urine Marijuana (THC) NEGATIVE (NEGATIVE) 10/20/19 Range/Units 04:45 WBC (4.0-10.5) K/mm3 RBC (4.1-5.4) M/mm3 Hgb (12.0-16.0) gm/dl Hct (35-47) % MCV (78-100) fl MCH (26-32) pg MCHC (32-36) g/dl RDW (11.5-14.0) % Plt Count (150-450) K/mm3 MPV (7.5-11.0) fl Gran % (36.0-66.0) % Eos # (Auto) (0-0.5) Absolute Lymphs (auto) (1.0-4.6) Absolute Monos (auto) (0.0-1.3) Lymphocytes % (24.0-44.0) % Monocytes % (0.0-12.0) % Eosinophils % (0.00-5.0) % Basophils % (0.0-0.4) % Absolute Granulocytes (1.4-6.9) Basophils # (0-0.4) Sodium 138 (137-145) mmol/L Potassium 4.0 (3.5-5.1) mmol/L Chloride 108 H (98-107) mmol/L Carbon Dioxide 26 (22-30) mmol/L Anion Gap 8.1 (5-15) MEQ/L BUN 3 L (7-17) mg/dL Creatinine 0.58 (0.52-1.04) mg/dL Estimated GFR > 60.0 ML/MIN Glucose 98 (74-106) mg/dL Hemoglobin A1c (4.5-6.0) % Calcium 8.0 L (8.4-10.2) mg/dL Total Bilirubin 0.30 (0.2-1.3) mg/dL AST 35 (14-36) U/L ALT 50 H (0-35) U/L Alkaline Phosphatase 89 (38-126) U/L Serum Total Protein 5.8 L (6.3-8.2) g/dL Albumin 3.4 L (3.5-5.0) g/dL Amylase 59 (30-110) U/L Lipase 65 (23-300) U/L Urine Opiates Level (NEGATIVE) Ur Methadone (NEGATIVE) Urine Barbiturates (NEGATIVE) Ur Phencyclidine (PCP) (NEGATIVE) Urine Amphetamine (NEGATIVE) U Benzodiazepine Level (NEGATIVE) Urine Cocaine (NEGATIVE) Urine Marijuana (THC) (NEGATIVE) Radiology Exams: Radiology Procedures Category Date Time Status ABDOMEN AND PELVIS W CONTRAST [CT] Urgent Exams 10/19/19 19:25 Taken ABDOMEN AND PELVIS W/0 CONTRAS [CT] Stat Exams 10/18/19 16:59 Completed Assessment/Plan (1) Enteritis Current Visit: Yes Status: Acute Code(s): K52.9 - NONINFECTIVE GASTROENTERITIS AND COLITIS, UNSPECIFIED (2) Ileus Current Visit: Yes Status: Acute Code(s): K56.7 - ILEUS, UNSPECIFIED (3) Intractable abdominal pain Current Visit: Yes Status: Chronic Assessment & Plan: WIll discuss with Dr. Fournier today. Code(s): R10.9 - UNSPECIFIED ABDOMINAL PAIN (4) Loss of appetite for more than 2 weeks Current Visit: Yes Status: Chronic Code(s): R63.0 - ANOREXIA (5) Headache Current Visit: Yes Status: Acute Qualifiers: Headache type: tension-type Headache chronicity pattern: acute headache Assessment & Plan: Just received Tylenol, she says this usually helps her headache. Code(s): R51 - HEADACHE
--- NOTE | 2019-10-20 09:32 | XRAY ---
Indication: Abdomen pain. Multiple contiguous axial images obtained through the abdomen and pelvis using 80 cc Isovue 370 contrast. Enteric contrast also used. Comparison: October 18, 2019. Lung bases again demonstrates bibasilar dependent atelectasis/scarring, more than before. No infiltrate or effusion. Heart is not enlarged. Stomach is distended with contrast. Contrasted stomach and bowel loops appear nonobstructed. There is now mild diffuse scattered colonic fecal debris throughout. Again appendectomy, cholecystectomy and IUD in situ. Again small cul-de-sac free fluid presumed physiologic from rupture/leaking cyst. No free air. Remaining liver, pancreas, spleen, adrenal glands, kidneys, ureters, bladder, uterus, and aorta appear unremarkable. No pathologic retroperitoneal lymphadenopathy. Osseous structures intact. Impression: 1. New mild fecal stasis without obstruction. 2. Again cul-de-sac fluid presumed physiologic. 3. Remaining CT abdomen/pelvis with contrast exam is negative. Comment: Preliminary interpretation was made by [facility] who reports left abdomen small bowel intussusception which I do not appreciate. Also no corresponding abnormality on the delayed images or sagittal/coronal reformatted images.
[2019-10-20] MEDS: Pepcid 20 MG VIAL IV SCH (09:49)
[2019-10-20] MEDS: PROTONIX 40 MG IV IV SCH (09:49)
[2019-10-20] MEDS: BENTYL 20 MG PO SCH ×3 (09:49→16:30)
[2019-10-20 17:23] VITALS: BP 120/77; PULSE 76; O2SAT 94
== END 2019-10-20 19:45 | disposition short-term general hospital (02) ==
LOC: ED 16:24 → MED SURG 21:53
PROVIDERS: ADMIT Family Medicine; ATTEND Family Medicine
DX: K52.9 Noninfective gastroenteritis and colitis, unspecified (principal); K56.7 Ileus, unspecified; R63.0 Anorexia; R51 Headache; R10.13 Epigastric pain; Z79.899 Other long term (current) drug therapy
CPT/HCPCS: 36000; 36415; 74176; 74177; 80053; 80307; 81001; 81025; 82150; 82962; 83036; 83605; 83690; 85025; 93268; 94762; 96360; 96374; 96375; 96376; 99285; G0378; J1170; J2405; J2550; A9270-GY

== ENCOUNTER 2021-09-11 14:34 | Emergency (ER) | payer BC ==
[2021-09-11 15:51] LABS: ALBUMIN 4.6 g/dL (3.5-5.0); ALKALINE PHOSPHATASE 79 U/L (38-126); ANION GAP 13.1 MEQ/L (5-15); BLOOD UREA NITROGEN 7 mg/dL (7-17); CHLORIDE 105 mmol/L (98-107); Calcium 9.4 mg/dL (8.4-10.2); Carbon Dioxide 26 mmol/L (22-30); Creatinine 1 0.59 mg/dL (0.52-1.04); EST GLOMERULAR FILTRATION RATE > 60.0 ML/MIN; Glucose 98 mg/dL (74-106); NT PRO BNP 31.7 pg/mL (0-450); Potassium 3.7 mmol/L (3.5-5.1); SGOT/AST 30 U/L (14-36); SGPT/ALT 30 U/L (0-35); SODIUM 140 mmol/L (137-145); Total Protein 7.3 g/dL (6.3-8.2)
[2021-09-11 16:15] VITALS: O2SAT 97
[2021-09-11 16:16] LABS: Absolute Neutrophil Ct (ANC) 4.57 (1.4-6.9); Basophil (Absolute #) 0.02 (0-0.4); Eosinophil % 2.2 % (0.00-5.0); Eosinophil (Absolute #) 0.17 (0-0.5); Hematocrit 44.4 % (35-47); Hemoglobin 14.5 gm/dl (12.0-16.0); Lymphocyte (Absolute #) 2.45 (1.0-4.6); Lymphocytes % 31.4 % (24.0-44.0); Mean Cell Volume 94.5 fl (78-100); Mean Corpuscular Hemoglobin 30.9 pg (26-32); Mean Corpuscular Hgb Concent. 32.7 g/dl (32-36); Monocyte (Absolute #) 0.59 (0.0-1.3); Monocytes % 7.6 % (0.0-12.0); Neutrophil % 58.5 % (36.0-66.0); Platelet Count 281 K/mm3 (150-450); Red Cell Distribution Width 13.6 % (11.5-14.0); White Blood Count 7.8 K/mm3 (4.0-10.5)
--- NOTE | 2021-09-11 16:34 | ERPHSYRPT ---
- History of Present Illness Time Seen by Provider: 09/11/21 14:55 Source: patient Exam Limitations: no limitations Patient Subjective Stated Complaint: Chest pain Triage Nursing Assessment: Patient brought into ED via EMS and transferred to bed per self. Patient A+O x3. Patient's skin pink, warm and dry. Patient complains of intermittent epigastric pain that is a constant heaviness 4/10 since last Wed. Patient complains of nausea on and off all day. Lungs clear a/p karel. Physician History: Patient is a 35-year-old female who presents to emergency department for evaluation of epigastric pain. Symptoms started today. Pain described as an ache that is localized to the epigastric substernal area pain rated 4 out of 10. Patient arrived via EMS. In route she received 324 mg of aspirin p.o. Patient admits to mild nausea. No vomiting. No trauma. No fever. Patient denies a history of the same. Patient does states she is under a lot of stress. Patient otherwise healthy. She has a history of a right lower extremity DVT currently not anticoagulated. Patient is a smoker. She voices no other complaints or concerns at this time. Timing/Duration: today Severity: moderate Modifying Factors: Improves With: nothing Associated Symptoms: nausea, chest pain, syncope, weakness, No vomiting, No shortness of breath, No cough, No fever, No loss of appetite Allergies/Adverse Reactions: No Known Drug Allergies Allergy (Unverified 09/11/21 14:38) Hx Tetanus, Diphtheria Vaccination/Date Given: Yes Hx Influenza Vaccination/Date Given: Yes Hx Pneumococcal Vaccination/Date Given: No Travel Risk - International Travel Have you traveled outside of the country in past 3 weeks: No - Coronavirus Screening Are you exhibiting any of the following symptoms?: No Close contact with a COVID-19 positive Pt in past 14-21 Days: No - Vaccine Status Have you recieved a Covid-19 vaccination: Yes [employer]: [employer] - Vaccination Dates Date of 2cond Vaccination (if applicable): January 2021 - Review of Systems Constitutional: No Symptoms, No Fever, No Chills Eyes: No Symptoms Ears, Nose, & Throat: No Symptoms Respiratory: No Symptoms, No Cough, No Dyspnea Cardiac: No Symptoms, No Chest Pain, No Edema, No Syncope Abdominal/Gastrointestinal: No Symptoms, No Abdominal Pain, No Nausea, No Vomiting, No Diarrhea Genitourinary Symptoms: No Symptoms, No Dysuria Musculoskeletal: No Symptoms, No Back Pain, No Neck Pain Skin: No Symptoms, No Rash Neurological: No Symptoms, No Dizziness, No Focal Weakness, No Sensory Changes Psychological: No Symptoms Endocrine: No Symptoms Hematologic/Lymphatic: No Symptoms Immunological/Allergic: No Symptoms All Other Systems: Reviewed and Negative - Past Medical History Pertinent Past Medical History: Yes Neurological History: No Pertinent History ENT History: No Pertinent History Cardiac History: No Pertinent History Respiratory History: COPD, Other Endocrine Medical History: No Pertinent History Musculoskeletal History: No Pertinent History GI Medical History: GERD, Irritable Bowel History: No Pertinent History Psycho-Social History: Anxiety Female Reproductive Disorders: No Pertinent History Other Medical History: 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 Current everyday smoker. - Past Surgical History Past Surgical History: Yes Neuro Surgical History: No Pertinent History Cardiac: No Pertinent History Respiratory: No Pertinent History Gastrointestinal: Appendectomy, Cholecystectomy, Other Genitourinary: No Pertinent History Musculoskeletal: No Pertinent History Female Surgical History: No Pertinent History Other Surgical History: hx of colonoscopies 2013 and 2016 2019, lymph nodes removed from groin 2013 - Social History Smoking Status: Current every day smoker How long have you smoked: 20 YEARS Exposure to second hand smoke: No Drug Use: none Patient Lives Alone: No - Female History Hx Last Menstrual Period: last week Hx Now: No - Nursing Vital Signs Nursing Vital Signs: Initial Vital Signs Temperature 97.2 F 09/11/21 14:39 Pulse Rate 74 09/11/21 14:39 Respiratory Rate 18 09/11/21 14:39 Blood Pressure 122/86 09/11/21 14:39 O2 Sat by Pulse Oximetry 99 09/11/21 14:39 Pain Scale Pain Intensity 4 - Physical Exam General Appearance: no apparent distress, alert Eye Exam: PERRL/EOMI, eyes nml inspection Ears, Nose, Throat Exam: normal ENT inspection, TMs normal, pharynx normal, moist mucous membranes Neck Exam: normal inspection, non-tender, supple, full range of motion Respiratory Exam: normal breath sounds, lungs clear, airway intact, No respiratory distress Cardiovascular Exam: regular rate/rhythm, normal heart sounds, normal peripheral pulses Gastrointestinal/Abdomen Exam: soft, normal bowel sounds, No tenderness, No mass Back Exam: normal inspection, normal range of motion, No CVA tenderness, No vertebral tenderness Extremity Exam: normal inspection, normal range of motion, pelvis stable Neurologic Exam: alert, oriented x 3, cooperative, normal mood/affect, nml cerebellar function, nml station & gait, sensation nml, No motor deficits Skin Exam: normal color, warm, dry, No rash Lymphatic Exam: No adenopathy SpO2 Interpretation: normal SpO2: 97 O2 Delivery: Room Air - Course Nursing assessment & vital signs reviewed: Yes EKG Interpreted by Me: RATE (71), Sinus Rhythm, NORMAL AXIS, NORMAL INTERVALS - Radiology Exams Chest X-ray Interpretation: Teleradiologist Report (Normal heart lungs and bony thorax.) Ordered Tests: Active Orders 24 hr Category Date Time Status Twisting Frame Operator STAT Care 09/11/21 14:49 Active EKG-ER Only STAT Care 09/11/21 14:49 Active IV Insertion STAT Care 09/11/21 14:49 Active Pulse Oximetry (ED) STAT Care 09/11/21 14:49 Active CHEST 1 VIEW (PORTABLE) Stat Exams 09/11/21 14:49 Completed CBC W DIFF Stat Lab 09/11/21 15:20 Completed CMP Stat Lab 09/11/21 15:20 Completed D-DIMER QUANTITATIVE Stat Lab 09/11/21 15:20 Completed LIPASE Stat Lab 09/11/21 16:22 Completed NT PRO BNP Stat Lab 09/11/21 15:20 Completed TROPONIN Q3H Lab 09/11/21 15:20 Completed TROPONIN Q3H Lab 09/11/21 16:57 Completed TROPONIN Q3H Lab 09/11/21 21:00 Ordered TROPONIN Q3H Lab 09/12/21 00:00 Ordered TROPONIN Q3H Lab 09/12/21 03:00 Ordered Lab/Rad Data: Laboratory Result Diagrams 09/11/21 15:20 09/11/21 15:20 Laboratory Results 09/11/21 09/11/21 09/11/21 Range/Units 16:57 16:22 15:20 WBC (4.0-10.5) K/mm3 RBC (4.1-5.4) M/mm3 Hgb (12.0-16.0) gm/dl Hct (35-47) % MCV (78-100) fl MCH (26-32) pg MCHC (32-36) g/dl RDW (11.5-14.0) % Plt Count (150-450) K/mm3 MPV (7.5-11.0) fl Gran % (36.0-66.0) % Eos # (Auto) (0-0.5) Absolute Lymphs (auto) (1.0-4.6) Absolute Monos (auto) (0.0-1.3) Lymphocytes % (24.0-44.0) % Monocytes % (0.0-12.0) % Eosinophils % (0.00-5.0) % Basophils % (0.0-0.4) % Absolute Granulocytes (1.4-6.9) Basophils # (0-0.4) D-Dimer (215-500) ng/mL Sodium (137-145) mmol/L Potassium (3.5-5.1) mmol/L Chloride (98-107) mmol/L Carbon Dioxide (22-30) mmol/L Anion Gap (5-15) MEQ/L BUN (7-17) mg/dL Creatinine (0.52-1.04) mg/dL Estimated GFR ML/MIN Glucose (74-106) mg/dL Calcium (8.4-10.2) mg/dL Total Bilirubin (0.2-1.3) mg/dL AST (14-36) U/L ALT (0-35) U/L Alkaline Phosphatase (38-126) U/L Troponin I < 0.012 < 0.012 (0.000-0.034) ng/mL NT-Pro-B Natriuret Pep (0-450) pg/mL Serum Total Protein (6.3-8.2) g/dL Albumin (3.5-5.0) g/dL Lipase 202 (23-300) U/L 09/11/21 09/11/21 09/11/21 Range/Units 15:20 15:20 15:20 WBC 7.8 (4.0-10.5) K/mm3 RBC 4.70 (4.1-5.4) M/mm3 Hgb 14.5 (12.0-16.0) gm/dl Hct 44.4 (35-47) % MCV 94.5 (78-100) fl MCH 30.9 (26-32) pg MCHC 32.7 (32-36) g/dl RDW 13.6 (11.5-14.0) % Plt Count 281 (150-450) K/mm3 MPV 9.0 (7.5-11.0) fl Gran % 58.5 (36.0-66.0) % Eos # (Auto) 0.17 (0-0.5) Absolute Lymphs (auto) 2.45 (1.0-4.6) Absolute Monos (auto) 0.59 (0.0-1.3) Lymphocytes % 31.4 (24.0-44.0) % Monocytes % 7.6 (0.0-12.0) % Eosinophils % 2.2 (0.00-5.0) % Basophils % 0.3 (0.0-0.4) % Absolute Granulocytes 4.57 (1.4-6.9) Basophils # 0.02 (0-0.4) D-Dimer 354 (215-500) ng/mL Sodium 140 (137-145) mmol/L Potassium 3.7 (3.5-5.1) mmol/L Chloride 105 (98-107) mmol/L Carbon Dioxide 26 (22-30) mmol/L Anion Gap 13.1 (5-15) MEQ/L BUN 7 (7-17) mg/dL Creatinine 0.59 (0.52-1.04) mg/dL Estimated GFR > 60.0 ML/MIN Glucose 98 (74-106) mg/dL Calcium 9.4 (8.4-10.2) mg/dL Total Bilirubin 0.50 (0.2-1.3) mg/dL AST 30 (14-36) U/L ALT 30 (0-35) U/L Alkaline Phosphatase 79 (38-126) U/L Troponin I (0.000-0.034) ng/mL NT-Pro-B Natriuret Pep 31.7 (0-450) pg/mL Serum Total Protein 7.3 (6.3-8.2) g/dL Albumin 4.6 (3.5-5.0) g/dL Lipase (23-300) U/L - Progress Progress: improved Progress Note: Patient reassessed. She is asymptomatic. Troponin negative x2. D-dimer negative. EKG normal sinus rhythm. Chest x-ray negative. Laboratory work-up essentially nonremarkable. Will discharge home. Patient's pain is primarily epigastric. Lipase negative. No indication for CT abdomen pelvis at this time. Abdominal exam essentially nonremarkable. Slight tenderness in the epigastrium. Patient agrees to follow-up with primary care doctor within 48 hours for evaluation. Portions of this note were created with voice recognition technology. There may be grammatical, spelling, punctuation or sound alike errors 09/11/21 17:44 Counseled pt/family regarding: lab results, diagnosis, rad results, smoking cessation - Departure Departure Disposition: Home Clinical Impression: Epigastric pain Condition: Stable Critical Care Time: No Referrals: NALLELY YANES [Primary Care Provider] - Follow up/PCP as directed Additional Instructions: Discharge/Care Plan JUAN FLORES was seen on 09/11/21 in the Emergency Room. The patient was counseled regarding Diagnosis,Lab results, Imaging studies, need for follow up and when to return to the Emergency Room. Prescriptions given: Discharge Note I have spoken with the patient and/or caregivers. I have explained the patient's condition, diagnosis and treatment plan based on the information available to me at this time. I have answered the patient's and/or caregiver's questions and addressed any concerns. The patient and/or caregivers have as good understanding of the patient's diagnosis, condition and treatment plan as can be expected at this point. The vital signs have been stable. The patient's condition is stable and appropriate for discharge from the emergency department. The patient will pursue further outpatient evaluation with the primary care physician or other designated or consulting physician as outlined in the discharge instructions. The patient and/or caregivers are agreeable to this plan of care and follow-up instructions have been explained in detail. The patient and/or caregivers have received these instruction. The patient/and or caregivers are aware that any significant change in condition or worsening of symptoms should prompt an immediate return to this or the closest emergency department or call 911.
--- NOTE | 2021-09-11 16:54 | XRAY ---
Indication: Chest pain. Comparison: June 05, 2016. Portable chest demonstrates new minimal left mid to lower lung subsegmental atelectasis/scarring. Remaining heart, right lung, and bony thorax normal.
[2021-09-11 18:01] VITALS: BP 119/78; PULSE 66
== END 2021-09-11 18:08 | disposition home or self-care (01) ==
LOC: ED 14:34
DX: R10.13 Epigastric pain (principal); R11.0 Nausea; R07.9 Chest pain, unspecified; R55 Syncope and collapse; R53.1 Weakness; J44.9 Chronic obstructive pulmonary disease, unspecified; K21.9 Gastro-esophageal reflux disease without esophagitis; Z72.0 Tobacco use
CPT/HCPCS: 36000; 36415; 71045; 80053; 83690; 83880; 84484; 85025; 85379; 93005; 93041; 94760; 99284